=== PATIENT | female | born 1950 | race Caucasian/White ===

== ENCOUNTER 2016-06-10 | Outpatient (CLI) | payer BC | END 2016-06-10 17:59 | disposition EMS.NT ==

== ENCOUNTER 2016-08-24 08:00 | Outpatient (CLI) | payer BC, MEDICARE ==
[2016-08-24 19:20] LABS: BASOPHILS % (AUTO) 0.7 %; EOSINOPHILS # (AUTO) 0.2 10^3/uL (0.0-0.7); EOSINOPHILS % (AUTO) 2.6 %; HCT - HEMATOCRIT 38.2 % (37.0-47.0); HGB - HEMOGLOBIN 12.8 g/dL (12.0-16.0); LYMPHOCYTES # (AUTO) 1.2 10^3/uL (1.5-3.5); LYMPHOCYTES % (AUTO) 19.4 %; MEAN CORPUSCULAR HEMOGLOBIN 30.7 pg (27.0-31.0); MEAN CORPUSCULAR HGB CONC 33.4 g/dL (32.0-36.0); MEAN CORPUSCULAR VOLUME 91.9 fL (81.0-99.0); MEAN PLATELET VOLUME 9.3 fL (7.9-10.8); MONOCYTES # (AUTO) 0.4 10^3/uL (0.0-1.0); MONOCYTES % (AUTO) 6.7 %; NEUTROPHILS # (AUTO) 4.6 10^3/uL (1.5-6.6); NEUTROPHILS % (AUTO) 70.6 %; RED BLOOD COUNT 4.16 10^6/uL (4.20-5.40); RED CELL DISTRIBUTION WIDTH 12.5 % (12.0-15.0); UNCORRECTED WHITE BLOOD COUNT 6.4 x10^3/uL; WHITE BLOOD COUNT 6.4 x10^3/uL (4.8-10.8)
[2016-08-24 19:28] LABS: ALBUMIN/GLOBULIN RATIO 1.3 (1.0-2.2); BILIRUBIN,TOTAL 0.5 mg/dL (0.2-1.0); BUN - BLOOD UREA NITROGEN 23 mg/dL (6-20); CALCIUM 9.2 mg/dL (8.5-10.3); CARBON DIOXIDE - CO2 30 mmol/L (21-32); CHLORIDE 104 mmol/L (101-111); CHOL/HDL RATIO 3.6 (<4.4); CHOLESTEROL 172 mg/dL; CREATININE 0.8 mg/dL (0.4-1.0); GFR - MDRD 72 (>89); GLUCOSE 85 mg/dL (70-100); HDL CHOLESTEROL 48 mg/dL; LDL/HDL RATIO 2.1 (<4.4); POTASSIUM 4.2 mmol/L (3.5-5.0); SODIUM 141 mmol/L (135-145); TOTAL PROTEIN 6.8 g/dL (6.7-8.2); TRIGLYCERIDES 106 mg/dL; VLDL CHOLESTEROL 21 mg/dL
[2016-08-24 19:46] LABS: HEMOGLOBIN A1C 0.47 g/dL
== END 2016-08-24 23:59 ==
LOC: LAB.WCP 08:00
PROVIDERS: ATTEND Family Medicine
DX: E11.9 Type 2 diabetes mellitus without complications (principal)
CPT/HCPCS: 36415; 80053; 80061; 83036; 85025

== ENCOUNTER 2017-05-14 22:31 | Outpatient (CLI) | payer MEDICARE | END 2017-05-14 22:32 | disposition short-term general hospital (02) | LOC: EMS 22:31 | PROVIDERS: ATTEND Surgery | DX: R53.1 Weakness (principal) | CPT/HCPCS: A0425; A0429 ==

== ENCOUNTER 2017-05-31 13:31 | Outpatient (CLI) | payer MEDICARE | END 2017-05-31 13:32 | disposition short-term general hospital (02) | LOC: EMS 13:31 | PROVIDERS: ATTEND Surgery | DX: M79.89 Other specified soft tissue disorders (principal); R53.1 Weakness | CPT/HCPCS: A0425; A0429 ==

== ENCOUNTER 2017-06-06 17:19 | Outpatient (CLI) | payer MEDICARE | END 2017-06-06 17:20 | disposition EMS.NT | LOC: EMS 17:19 | PROVIDERS: ATTEND Surgery | DX: Z03.89 Encounter for observation for other suspected diseases and conditions ruled out (principal); W01.0XXA Fall on same level from slipping, tripping and stumbling without subsequent striking against object, initial encounter; Y92.009 Unspecified place in unspecified non-institutional (private) residence as the place of occurrence of the external cause ==

== ENCOUNTER 2017-06-10 14:50 | Outpatient (CLI) | payer MEDICARE ==
[2017-06-10 19:00] LABS: BASOPHILS # (AUTO) 0.1 10^3/uL (0.0-0.1); BASOPHILS % (AUTO) 0.7 %; EOSINOPHILS # (AUTO) 0.2 10^3/uL (0.0-0.7); EOSINOPHILS % (AUTO) 3.1 %; HGB - HEMOGLOBIN 11.4 g/dL (12.0-16.0); LYMPHOCYTES # (AUTO) 1.2 10^3/uL (1.5-3.5); LYMPHOCYTES % (AUTO) 15.6 %; MEAN CORPUSCULAR HGB CONC 33.7 g/dL (32.0-36.0); MEAN PLATELET VOLUME 8.3 fL (7.9-10.8); MONOCYTES # (AUTO) 0.7 10^3/uL (0.0-1.0); MONOCYTES % (AUTO) 8.5 %; NEUTROPHILS # (AUTO) 5.5 10^3/uL (1.5-6.6); NEUTROPHILS % (AUTO) 72.1 %; PLT - PLATELET COUNT 183 10^3/uL (130-450); RED CELL DISTRIBUTION WIDTH 13.4 % (12.0-15.0); WHITE BLOOD COUNT 7.7 x10^3/uL (4.8-10.8)
[2017-06-10 19:32] LABS: THYROID STIMULATING HORMONE 0.87 uIU/mL (0.34-5.60)
[2017-06-10 19:34] LABS: ALBUMIN 3.7 g/dL (3.2-5.5); ALBUMIN/GLOBULIN RATIO 1.2 (1.0-2.2); ALKALINE PHOSPHATASE 85 IU/L (42-121); ALT ALANINE AMINOTRANSFERASE 29 IU/L (10-60); AST ASPARTATE AMINOTRANSFERASE 30 IU/L (10-42); BILIRUBIN,TOTAL 0.7 mg/dL (0.2-1.0); BUN - BLOOD UREA NITROGEN 28 mg/dL (6-20); CALCIUM 8.9 mg/dL (8.5-10.3); CARBON DIOXIDE - CO2 29 mmol/L (21-32); CHLORIDE 100 mmol/L (101-111); CREATININE 0.9 mg/dL (0.4-1.0); GFR - MDRD 63 (>89); GLUCOSE 128 mg/dL (70-100); SODIUM 135 mmol/L (135-145); TOTAL PROTEIN 6.7 g/dL (6.7-8.2)
[2017-06-10 19:36] LABS: CRP - C-REACTIVE PROTEIN < 1.0 mg/dL (0-1.0)
[2017-06-12 15:36] LABS: ALBUMIN 3.5 g/dL (3.8-4.8); ALPHA 1 GLOBULIN 0.4 g/dL (0.2-0.3); ALPHA 2 GLOBULIN 0.8 g/dL (0.5-0.9); BETA 1 GLOBULIN 0.4 g/dL (0.4-0.6); BETA 2 GLOBULIN 0.3 g/dL (0.2-0.5); GAMMA GLOBULIN 0.8 g/dL (0.8-1.7)
== END 2017-06-10 14:51 | disposition home or self-care (01) ==
LOC: LAB.WCP 14:50
PROVIDERS: ATTEND Family Medicine
DX: R29.898 Other symptoms and signs involving the musculoskeletal system (principal)
CPT/HCPCS: 36415; 80053; 82607; 84155; 84165; 84443; 85025; 85651; 86140

== ENCOUNTER 2017-06-23 15:02 | Outpatient (CLI) | payer MEDICARE | END 2017-06-23 15:03 | disposition short-term general hospital (02) | LOC: EMS 15:02 | PROVIDERS: ATTEND Surgery | DX: R53.1 Weakness (principal); R41.3 Other amnesia; R29.6 Repeated falls; R60.0 Localized edema | CPT/HCPCS: A0425; A0429 ==

== ENCOUNTER 2017-06-30 10:10 | Outpatient (CLI) | payer MEDICARE | END 2017-06-30 10:11 | disposition short-term general hospital (02) | LOC: EMS 10:10 | PROVIDERS: ATTEND Surgery | DX: R60.0 Localized edema (principal) | CPT/HCPCS: A0425; A0429 ==

== ENCOUNTER 2017-08-10 18:54 | Outpatient (CLI) | payer MEDICARE | END 2017-08-10 18:55 | disposition EMS.NT | LOC: EMS 18:54 | PROVIDERS: ATTEND Surgery | DX: R55 Syncope and collapse (principal); R42 Dizziness and giddiness; W18.39XA Other fall on same level, initial encounter; Y93.E5 Activity, floor mopping and cleaning; Y92.000 Kitchen of unspecified non-institutional (private) residence as the place of occurrence of the external cause ==

== ENCOUNTER 2017-08-12 04:11 | Outpatient (CLI) | payer MEDICARE | END 2017-08-12 04:12 | disposition EMS.NT | LOC: EMS 04:11 | PROVIDERS: ATTEND Surgery | DX: Z03.89 Encounter for observation for other suspected diseases and conditions ruled out (principal); W08.XXXA Fall from other furniture, initial encounter; Y92.009 Unspecified place in unspecified non-institutional (private) residence as the place of occurrence of the external cause ==

== ENCOUNTER 2017-09-15 17:14 | Outpatient (CLI) | payer MEDICARE | END 2017-09-15 17:15 | disposition short-term general hospital (02) | LOC: EMS 17:14 | PROVIDERS: ATTEND Surgery | DX: R45.89 Other symptoms and signs involving emotional state (principal); R53.1 Weakness | CPT/HCPCS: A0425; A0429 ==

== ENCOUNTER 2017-11-22 05:07 | Outpatient (CLI) | payer MEDICARE | END 2017-11-22 05:08 | disposition short-term general hospital (02) | LOC: EMS 05:07 | PROVIDERS: ATTEND Surgery | DX: M54.2 Cervicalgia (principal); W18.30XA Fall on same level, unspecified, initial encounter; Y92.009 Unspecified place in unspecified non-institutional (private) residence as the place of occurrence of the external cause | CPT/HCPCS: A0425; A0429 ==

== ENCOUNTER 2017-12-01 22:18 | Outpatient (CLI) | payer MEDICARE | END 2017-12-01 22:19 | disposition short-term general hospital (02) | LOC: EMS 22:18 | PROVIDERS: ATTEND Surgery | DX: R53.1 Weakness (principal) | CPT/HCPCS: A0425; A0429 ==